=== PATIENT | female | born 1995 | race Caucasian/White ===

== ENCOUNTER 2017-03-24 14:51 | Emergency (ER) | payer BC, MEDICAID ==
--- NOTE | 2017-03-24 15:49 | ER Document Report ---
HPI - HPI Patient complains to provider of: right shoulder injury Onset: This afternoon Quality of pain: Throbbing Pain Level: 5 Context: 21 yo female fell on right shoulder out of bed when her sister was pulling on the sheets trying to get her out of bed today. No previous injury. Hurts less notw than it did when she came to the ER. Associated Symptoms: None Exacerbated by: Movement Relieved by: Denies Similar symptoms previously: No Recently seen / treated by doctor: No - ROS ROS below otherwise negative: Yes Systems Reviewed and Negative: Yes All other systems reviewed and negative - DERM Skin Color: Normal Past Medical History - General Information source: Patient, Parent - Social History Smoking Status: Never Smoker Frequency of alcohol use: None Drug Abuse: None Lives with: Parents Family History: Reviewed & Not Pertinent Pulmonary Medical History: Reports: Hx Asthma Renal/ Medical History: Denies: Hx Peritoneal Dialysis Surgical Hx: Negative Vertical Provider Document - CONSTITUTIONAL Agree With Documented VS: Yes Exam Limitations: No Limitations General Appearance: No Apparent Distress - INFECTION CONTROL TRAVEL OUTSIDE OF THE [place] IN LAST 30 DAYS: No - HEENT HEENT: Normocephalic - NECK Neck: Supple - RESPIRATORY O2 Sat by Pulse Oximetry: 100 - MUSCULOSKELETAL/EXTREMETIES Musculoskeletal/Extremeties: MAEW, FROM, Tender - over right deltoid muscle - NEURO Level of Consciousness: Awake, Alert Motor/Sensory: No Motor Deficit, No Sensory Deficit - DERM Integumentary: Warm, Dry Course - Re-evaluation Re-evalutation: 03/24/17 16:42 X-rays negative - Vital Signs Vital signs: Temp Pulse Resp BP Pulse Ox 97.6 F 75 18 126/71 H 100 03/24/17 14:58 03/24/17 14:58 03/24/17 14:58 03/24/17 14:58 03/24/17 14:58 Procedures - Immobilization Right Arm Time completed: 16:56 Pre-Proc Neuro Vasc Exam: Normal Immobilizer type: Sling Performed by: YARA Post-Proc Neuro Vasc Exam: Normal Alignment checked and good: Yes Discharge - Discharge Clinical Impression: Contusion of right shoulder Qualifiers: Encounter type: initial encounter Qualified Code(s): S40.011A - Contusion of right shoulder, initial encounter Condition: Good Disposition: HOME, SELF-CARE Instructions: Temporary Sling ([facility]), Use of [id number] Ibuprofen ([facility]), Acetaminophen Additional Instructions: sling for a few days for comfort over the counter tylenol or motrin for pain copy of negative shoulder xray see orthopedics if persists Please complete the patient satisfaction survey if you get one, and return it.. If you do not receive a survey, then you can go to the [facility] website, [email or web address] and place your comments about your very good care. Thank you very much. It was a pleasure being your medical provider today. Referrals: DEVYN PINO MD [ACTIVE STAFF] - Follow up as needed
--- NOTE | 2017-03-24 16:30 | RADIOLOGY REPORT (SQ) ---
EXAM DESCRIPTION: SHOULDER RIGHT 2 OR MORE VIEWS COMPLETED DATE/TIME: 03/24/2017 4:18 pm REASON FOR STUDY: fall, pain with AROM COMPARISON: 07/28/2008 NUMBER OF VIEWS: Three views. TECHNIQUE: Internal rotation, external rotation, and Y view images acquired of the right shoulder. LIMITATIONS: None. FINDINGS: MINERALIZATION: Normal. BONES: No acute fracture or dislocation. No worrisome bone lesions. JOINTS: No dislocation. VISUALIZED LUNGS AND RIBS: No pneumothorax. No rib fracture. SOFT TISSUES: No radiopaque foreign body. OTHER: No other significant finding. IMPRESSION: NEGATIVE STUDY OF THE RIGHT SHOULDER. NO RADIOGRAPHIC EVIDENCE OF ACUTE INJURY. TECHNICAL DOCUMENTATION: JOB ID: [id number] [employer]- All Rights Reserved
[2017-03-24 16:58] VITALS: BP 122/73
== END 2017-03-24 16:56 | disposition home or self-care (01) ==
LOC: ER 14:51
DX: S40.011A Contusion of right shoulder, initial encounter (principal); W06.XXXA Fall from bed, initial encounter; Y93.84 Activity, sleeping; J45.909 Unspecified asthma, uncomplicated
CPT/HCPCS: 99283; 73030; L3650

== ENCOUNTER → 2018-01-10 | Outpatient (CLI) | payer BC ==
--- NOTE | 2018-01-10 18:13 | RADIOLOGY REPORT (SQ) ---
EXAM DESCRIPTION: ELBOW RIGHT >2 VIEWS COMPLETED DATE/TIME: 01/10/2018 5:41 pm REASON FOR STUDY: CONTUSION OF RIGHT ELBOW, INITIAL ENCOUNTER S50.01XA CONTUSION OF RIGHT ELBOW, IN ITIAL ENCOUNTER COMPARISON: None. NUMBER OF VIEWS: Four views. TECHNIQUE: AP, lateral, and both oblique radiographic images acquired of the right elbow. LIMITATIONS: None. FINDINGS: MINERALIZATION: Normal. BONES: No acute fracture or dislocation. No worrisome bone lesions. JOINT: No effusion. SOFT TISSUES: No soft tissue swelling. No foreign body. OTHER: No other significant finding. IMPRESSION: NEGATIVE STUDY OF THE RIGHT ELBOW. NO RADIOGRAPHIC EVIDENCE OF ACUTE INJURY. TECHNICAL DOCUMENTATION: JOB ID: [id number] [employer]- All Rights Reserved Reading location - IP/workstation name: [email or web address]
== END ==
LOC: OD 16:40
PROVIDERS: ATTEND Nurse Practitioner Acute Care
DX: S50.01XA Contusion of right elbow, initial encounter (principal); X58.XXXA Exposure to other specified factors, initial encounter